=== PATIENT | female | born 2000 | race Caucasian/White ===

== ENCOUNTER 2018-03-26 11:58 | Emergency (ER) | payer BC ==
[2018-03-26 12:13] VITALS: BP 119/82
--- NOTE | 2018-03-26 12:50 | UC ---
Skin Complaint HPI - HPI Summary HPI Summary: 18 y/o female with h/o frequent throat infections, followed by Dr. Carrera in past , presents with mass at base of L tongue x 4 days, painful with pain increasing to 9/10 currently, unable to eat or talk, presents with mother. no prior occurrences, no drainage, no fever, chills, feeling ill. - History of Current Complaint Chief Complaint: UCSkin Time Seen by Provider: 03/26/18 12:48 Stated Complaint: BUMP ON TONGUE Hx Obtained From: Patient Hx Last Menstrual Period: 03/14/18 Onset/Duration: Gradual Onset, Lasting Days Skin Exposure Onset/Duration: Days Ago Onset Severity: Mild Current Severity: Moderate Pain Intensity: 9 Pain Scale Used: 0-10 Numeric Aggravating Factor(s): Other - urination - Allergy/Home Medications Allergies/Adverse Reactions: Allergies Allergy/AdvReac Type Severity Reaction Status Date / Time Adhesive Tape Allergy Hives Verified 03/26/18 12:14 hydrocodone Allergy Nausea And Verified 03/26/18 12:14 Vomiting nuts Allergy Swelling Uncoded 03/26/18 12:14 Review of Systems Constitutional: Negative Skin: Negative Eyes: Negative ENT: Other - painful mass Lside of tongue Respiratory: Negative Cardiovascular: Negative Gastrointestinal: Negative Genitourinary: Negative Motor: Negative Neurovascular: Negative Musculoskeletal: Negative Neurological: Negative Psychological: Negative Is Patient Immunocompromised?: No All Other Systems Reviewed And Are Negative: Yes PMH/Surg Hx/FS Hx/Imm Hx Previously Healthy: Yes - Surgical History Surgical History: Yes Surgery Procedure, Year, and Place: lazy eye at 8 mos;. T/A 2005, [facility]. WISDOM TEETH 2011, [facility]. NASAL SURGERY-2014 - Family History Known Family History: Positive: Hypertension - Social History Alcohol Use: None Substance Use Type: None Smoking Status (MU): Never Smoked Tobacco Have You Smoked in the Last Year: No - Immunization History Most Recent Influenza Vaccination: 2016 Vaccination Up to Date: Yes Physical Exam Triage Information Reviewed: Yes Appearance: Well-Appearing, No Pain Distress, Well-Nourished Vital Signs: Initial Vital Signs Temp 98.6 F 03/26/18 12:08 Pulse 65 03/26/18 12:08 Resp 18 03/26/18 12:08 BP 119/82 03/26/18 12:08 Pulse Ox 99 09/24/18 12:08 Vital Signs Reviewed: Yes Eyes: Positive: Conjunctiva Clear ENT: Positive: Pharynx normal, Uvula midline, Other - small ~ 1 cm cicular mass at base of L tongue, palpated without extreme tenderness. full mvement of tongue, no erythema noted. appears fluid filled, fluctuant.. Negative: Pharyngeal erythema, Nasal congestion, Nasal drainage, Trismus, Muffled voice, Hoarse voice Dental Exam: Normal Neck: Negative: Nuchal Rigidity Abdomen Description: Positive: Soft, CVA Tenderness (R), Other: - mild suprapubic tenderness. Negative: CVA Tenderness (L), Distended, Hepatomegaly, Splenomegaly Musculoskeletal Exam: Normal Neurological Exam: Normal Psychological Exam: Normal Skin Exam: Normal Course/Dx - Course Course Of Treatment: probably mucocele, however patient referred to ENT, mother was able to make appt for 03/27 @ 9am. patient will follow up with dr. Carrera. viscous lidocaine given for swish and spit for pain control - Differential Diagnoses - Skin Complaint Differential Diagnoses: Abscess - Diagnoses Provider Diagnoses: mucocele. Discharge - Sign-Out/Discharge Documenting (check all that apply): Patient Departure All imaging exams completed and their final reports reviewed: Yes - Discharge Plan Condition: Good Disposition: HOME Prescriptions: Lidocaine 2% VISCOUS* [Xylocaine 2% Viscous*] 15 ml SWISH SPIT Q4H PRN #1 btl PRN Reason: mouth pain Forms: *School Release Referrals: Benji Carrera MD [Medical Doctor] - No Primary Care Phys,NOPCP [Primary Care Provider] - Additional Instructions: - Probably mucocele on tongue, however follow up with ENT for offical diagnosis - Lidocaine swish and spit to help with pain - Return with increased pain, difficulty swallowing - Billing Disposition and Condition Condition: GOOD Disposition: Home
== END 2018-03-26 13:48 | disposition home or self-care (01) ==
LOC: UCEAST 11:58
DX: K14.8 Other diseases of tongue (principal); Z88.5 Allergy status to narcotic agent; Z91.018 Allergy to other foods; Z91.048 Other nonmedicinal substance allergy status
CPT/HCPCS: 99212; G0463

== ENCOUNTER 2018-05-17 17:50 | Emergency (ER) | payer BC, OTHER ==
[2018-05-17] MEDS ORDERED: Ibuprofen TAB* 600 MG PO ONE (18:32)
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
[2018-05-17 19:46] VITALS: BP 124/82
== END 2018-05-17 19:51 | disposition home or self-care (01) ==
LOC: ED 17:50
DX: M54.2 Cervicalgia (principal); R51 Headache; H53.8 Other visual disturbances; V89.2XXA Person injured in unspecified motor-vehicle accident, traffic, initial encounter; Y92.9 Unspecified place or not applicable; M06.9 Rheumatoid arthritis, unspecified
CPT/HCPCS: 72125; 99283; A9270-GY